=== PATIENT | female | born 1985 | race Two or more races ===

== ENCOUNTER 2018-12-28 18:09 | Emergency (ER) | payer BC | END 2018-12-28 22:53 | disposition home or self-care (01) | LOC: FER 18:09 ==

== ENCOUNTER 2021-08-20 19:40 | Emergency (ER) | payer BC, OTHER ==
[2021-08-20] MEDS ORDERED: NAPROXEN 500 MG TABLET PO ONE (19:53)
[2021-08-20] MEDS ORDERED: NAPROXEN 500 MG TABLET ONE (19:56)
[2021-08-20 19:57] VITALS: BP 135/85; PULSE 81; TEMP 98.7; BMI 28.8
== END 2021-08-20 20:09 | disposition home or self-care (01) ==
LOC: FER 19:40
DX: S46.002A Unspecified injury of muscle(s) and tendon(s) of the rotator cuff of left shoulder, initial encounter (principal); W19.XXXA Unspecified fall, initial encounter
CPT/HCPCS: 99283-25

== ENCOUNTER 2021-08-25 02:20 | Emergency (ER) | payer BC, OTHER ==
[2021-08-25 02:43] VITALS: BMI 27.4
[2021-08-25] MEDS ORDERED: DEXAMETHASONE SOD PHOSPHATE 10 MG/1 ML VIAL IVPUSH ONE (03:22)
[2021-08-25] MEDS ORDERED: KETOROLAC TROMETHAMINE 15 MG/ML VIAL IVPUSH ONE (03:32)
[2021-08-25] MEDS ORDERED: DEXAMETHASONE SOD PHOSPHATE 10 MG/1 ML VIAL ONE (03:40)
[2021-08-25] MEDS ORDERED: KETOROLAC TROMETHAMINE 15 MG/ML VIAL ONE (03:41)
[2021-08-25] MEDS: ALBUTEROL SO4 2.5/IPRATROPIUM 0.5 INH SOL 3 ML VIAL.NEB. NEB SCH ×3 (03:49→05:46)
[2021-08-25 04:24] LABS: BASO % 0.8 % (0-2.0); HEMATOCRIT 38.5 % (32.4-45.2); HEMOGLOBIN 13.1 GM/dL (10.7-15.3); LYMPH % 28.6 % (8-40); MCH 30.6 pg (25.7-33.7); MCHC 34.1 g/dl (32.0-36.0); MEAN CELL VOLUME 89.6 fl (80-96); MEAN PLT VOLUME 7.8 fl (7.5-11.1); MONO % 10.5 % (3.8-10.2); NEUT % 56.1 % (42.8-82.8); PLATELET COUNT 309 10^3/uL (134-434); RDW 13.3 % (11.6-15.6); WHITE BLOOD COUNT 6.3 K/mm3 (4.0-10.0)
[2021-08-25 04:35] LABS: CALCIUM 8.9 mg/dL (8.5-10.1)
[2021-08-25 04:36] LABS: BLOOD UREA NITROGEN 11.1 mg/dL (7-18)
[2021-08-25 04:39] LABS: CREATININE 0.7 mg/dL (0.55-1.3)
[2021-08-25 04:40] LABS: BILIRUBIN,TOTAL 0.3 mg/dL (0.2-1)
[2021-08-25 04:41] LABS: TOT PROT 7.5 g/dl (6.4-8.2)
[2021-08-25 06:19] VITALS: BP 113/77; PULSE 69; TEMP 97.3
== END 2021-08-25 06:27 | disposition home or self-care (01) ==
LOC: JER 02:20
PROC: 3E033GC Introduction of Other Therapeutic Substance into Peripheral Vein, Percutaneous Approach (ICD-10-PCS; principal; 2021-08-25)
PROC: 3E0F7GC Introduction of Other Therapeutic Substance into Respiratory Tract, Via Natural or Artificial Opening (ICD-10-PCS; 2021-08-25)
DX: R07.89 Other chest pain (principal); R06.02 Shortness of breath; R05.9 Cough, unspecified
CPT/HCPCS: 36415; 71046-TC-FY; 80053; 84484; 85025; 93005; 93010; 99285-25; J1100

== ENCOUNTER 2022-08-01 17:42 | Emergency (ER) | payer BC, OTHER ==
[2022-08-01 17:51] VITALS: BP 134/63; PULSE 64; RESP 18; TEMP 98; BMI 29.2
[2022-08-01 18:58] LABS: HCG,QUALITATIVE URINE Negative
[2022-08-01 18:59] LABS: EPI CELLS 10 /uL (0-25.1); HYALINE CASTS 2 /uL (0-3.1); URINE APPEARANCE CLEAR; URINE BACTERIA 1721 /uL (0-1359); URINE BILIRUBIN NEGATIVE (NEGATIVE); URINE COLOR YELLOW; URINE GLUCOSE (UA) NEGATIVE (NEGATIVE); URINE KETONE NEGATIVE (NEGATIVE); URINE LEUK ESTERASE 1+ (NEGATIVE); URINE NITRITE NEGATIVE (NEGATIVE); URINE PROTEIN NEGATIVE (NEGATIVE); URINE RBC 28 /uL (0-23.9); URINE UROBILINOGEN 0.2 mg/dL (0.2-1.0); URINE WBC 425 /uL (0-25.8)
[2022-08-01] MEDS ORDERED: CEPHALEXIN MONOHYDRATE 500 MG CAPSULE (UD) PO ONE (19:11)
[2022-08-01] MEDS ORDERED: CEPHALEXIN MONOHYDRATE 500 MG CAPSULE (UD) ONE (19:16)
== END 2022-08-01 19:51 | disposition home or self-care (01) ==
LOC: JERFT 17:42 → JER 17:42 → JERFT 19:51
DX: N39.0 Urinary tract infection, site not specified (principal)
CPT/HCPCS: 81003; 84703; 87086; 87186; 99283-25

== ENCOUNTER 2022-12-27 15:11 | Emergency (ER) | payer BC, OTHER ==
[2022-12-27 15:18] VITALS: BMI 29.7
[2022-12-27] MEDS ORDERED: SODIUM CHLORIDE 0.9% 500 ML INFUS.BAG IV ONE (16:33)
[2022-12-27] MEDS ORDERED: ACETAMINOPHEN 1000 MG/100 ML BAG IVPB ONE (16:33)
[2022-12-27] MEDS ORDERED: ACETAMINOPHEN INJECTION 100 ML IVPB ONE (16:37)
[2022-12-27] MEDS ORDERED: ONDANSETRON 4 MG/2 ML VIAL IVPUSH ONE (16:39)
[2022-12-27] MEDS ORDERED: MAG HYDROX/AL HYDROX/SIMETH 30 ML UNIT-DOSE CUP PO ONE (16:48)
[2022-12-27] MEDS ORDERED: FAMOTIDINE 20 MG/50 ML IVPB 20 MG/50 ML MG IVPB ONE ×2 (16:48→17:01)
[2022-12-27] MEDS ORDERED: ONDANSETRON 4 MG/2 ML VIAL ONE (17:01)
[2022-12-27] MEDS ORDERED: MAG HYDROX/AL HYDROX/SIMETH 30 ML UNIT-DOSE CUP ONE (17:01)
[2022-12-27 17:14] LABS: BASO % 0.5 % (0-2.0); EOS % 1.3 % (0-4.5); HEMATOCRIT 42.8 % (32.4-45.2); HEMOGLOBIN 14.9 GM/dL (10.7-15.3); LYMPH % 19.5 % (8-40); MCH 30.9 pg (25.7-33.7); MCHC 34.8 g/dl (32.0-36.0); MEAN CELL VOLUME 88.9 fl (80-96); MEAN PLT VOLUME 7.1 fl (7.5-11.1); NEUT % 68.7 % (42.8-82.8); PLATELET COUNT 349 10^3/uL (134-434); RBC 4.81 M/mm3 (3.60-5.2); RDW 12.9 % (11.6-15.6); WHITE BLOOD COUNT 6.9 K/mm3 (4.0-10.0)
[2022-12-27 17:30] LABS: POTASSIUM 4.2 mmol/L (3.5-5.1)
[2022-12-27 17:32] LABS: BLOOD UREA NITROGEN 14.5 mg/dL (7-18); CALCIUM 9.4 mg/dL (8.5-10.1)
[2022-12-27 17:36] LABS: CREATININE 0.9 mg/dL (0.55-1.3)
[2022-12-27 17:38] LABS: BILIRUBIN,TOTAL 0.3 mg/dL (0.2-1)
[2022-12-27 18:06] VITALS: BP 131/74; PULSE 71; RESP 16; TEMP 98.8
== END 2022-12-27 19:01 | disposition home or self-care (01) ==
LOC: JER 15:11
PROC: 3E033GC Introduction of Other Therapeutic Substance into Peripheral Vein, Percutaneous Approach (ICD-10-PCS; principal; 2022-12-27)
PROC: 3E033NZ Introduction of Analgesics, Hypnotics, Sedatives into Peripheral Vein, Percutaneous Approach (ICD-10-PCS; 2022-12-27)
PROC: 3E033GC Introduction of Other Therapeutic Substance into Peripheral Vein, Percutaneous Approach (ICD-10-PCS; 2022-12-27)
DX: R09.81 Nasal congestion (principal); R07.0 Pain in throat; R11.2 Nausea with vomiting, unspecified; U07.1 COVID-19
CPT/HCPCS: 0241U-QW; 36415; 71045-TC-FY; 80053; 84484; 85025; 93005; 93010; 99285-25